=== PATIENT | male | born 1945 | race Caucasian/White ===

== ENCOUNTER → 2020-12-04 | Day surgery (SDC) | payer MEDICARE, OTHER ==
[~2020-12-04] VITALS: Ht 177.8 cm; Wt 89.5 kg
[~2020-12-04] MED LIST: AMLODIPINE BESY10 MG PO; ASPIRIN EC81 MG PO; COQ1050 MG PO; GLUCOTROL5 MG PO; HCTZ25 MG PO; LOVAZA1 GM PO; MAG-OXIDE 400M400 MG PO; MEN'S MULTIVIT1 EAC1 PO; METFORMIN HCL500 MG PO; MILK THISTLE150 MG PO; MOBIC7.5 MG PO; NORCO 5-325 TA1 EACH PO; PRINIVIL20 MG PO; TERBINAFINE HC250 MG PO; XARELTO10 MG PO
== END | disposition home or self-care (01) ==
LOC: FAS 06:20
DX: K57.30 Diverticulosis of large intestine without perforation or abscess without bleeding (principal); K64.0 First degree hemorrhoids; K76.0 Fatty (change of) liver, not elsewhere classified; K21.9 Gastro-esophageal reflux disease without esophagitis; E11.9 Type 2 diabetes mellitus without complications; E78.5 Hyperlipidemia, unspecified; I10 Essential (primary) hypertension; I51.7 Cardiomegaly; N40.0 Benign prostatic hyperplasia without lower urinary tract symptoms; G47.30 Sleep apnea, unspecified; Z86.711 Personal history of pulmonary embolism; Z79.84 Long term (current) use of oral hypoglycemic drugs; Z80.0 Family history of malignant neoplasm of digestive organs; Z98.1 Arthrodesis status; Z98.890 Other specified postprocedural states; Z79.899 Other long term (current) drug therapy; Z20.822 Contact with and (suspected) exposure to COVID-19
CPT/HCPCS: 82962; 88305; J2250; J2704; J7120